=== PATIENT | female | born 1965 | race African-American/Black ===

== ENCOUNTER 2016-06-06 11:04 | Emergency (ER) | payer OTHER ==
[~2016-06-06] VITALS: Ht 160 cm; Wt 102.0 kg
[2016-06-06 11:06] VITALS: BP 187/83; PULSE 84; RESP 17; TEMP 97.8; O2SAT 98
--- NOTE | 2016-06-06 11:25 | PD ---
Physical Exam Time Seen by Provider: 11:21 Narrative 50yo F c/o rash to BUE, BLE, chest, and back since Monday. Denies fever, vomiting. Brought bugs with her. She is staying in a hotel. Patient stable. Patient seen in triage. Awaiting bed placement. Data Data Last Documented VS Vital Signs Date Time Temp Pulse Resp B/P Pulse Ox O2 Delivery O2 Flow Rate FiO2 06/06/16 11:06 97.8 84 17 187/83 98 MDM Supervised Visit with TRACY: Lalita Nichols Jun 06, 2016 11:25
--- NOTE | 2016-06-06 12:21 | PD ---
HPI . Possible bedbug bite since Monday Chief Complaint: Bite or Sting Time Seen by Provider: 12:21 Travel History International Travel<30 days: No Contact w/Intl Traveler<30days: No Traveled to known affect area: No History of Present Illness HPI 50-year-old female here with complaints of possible bedbug bites since Monday. Patient is visiting from out of town and staying at a hotel. She reports that ever since starting her stay at the hotel on Monday that she has been noticing areas on her skin popping up that appear to look like insect bites. She reports that they initially started off itchy, and then it dissipates. Today she is here and has brought a small bug with her for us to identify. She is still complaining of bites, but tells me that they are not significantly pruritic. She denies any fever or chills. She denies any new hygiene products. Her is staying with her in the hotel and has a few bites, but not as many as the patient. They will be leaving tomorrow. PFSH Past Medical History ?: Not Past Surgical History Hysterectomy: Yes Social History Tobacco Use: No Allergies-Medications (Allergen,Severity, Reaction): Coded Allergies: No Known Allergies (Unverified , 06/06/16) Reported Meds & Prescriptions Reported Meds & Active Scripts Active Hydrocortisone Topical 2.5% Cream 1 Applic TOPICAL BID 5 Days Review of Systems General / Constitutional: No: Fever Eyes: No: Visual changes HENT: No: Headaches Cardiovascular: No: Chest Pain or Discomfort Respiratory: No: Shortness of Breath Gastrointestinal: No: Abdominal Pain Genitourinary: No: Dysuria Musculoskeletal: No: Pain Skin: Positive Itching, Positive Other (insect bites/), No Rash Neurologic: No: Weakness Psychiatric: No: Depression Endocrine: No: Polydipsia Hematologic/Lymphatic: No: Easy Bruising Physical Exam Narrative GENERAL: AAO x 3, no acute distress, Well-nourished, well-developed patient. SKIN: Warm and dry. No visible rashes or bruising. There are skip-like lesions randomly distributed on the upper extremities, 2 on the chest done on the lower extremities. They appear to have a central bite leander, raised. No evidence of warmth or purulence. No blisters HEAD: Normocephalic and atraumatic. EYES: No scleral icterus. No injection or drainage. ENT: No nasal drainage noted. Mucous membranes pink. Airway patent. NECK: Supple, trachea midline. No JVD. CARDIOVASCULAR: Regular rate and rhythm without murmurs, gallops, or rubs. RESPIRATORY: Breath sounds equal bilaterally. No accessory muscle use. No rhonchi or rales. GASTROINTESTINAL: Visual inspection normal EXTREMITIES: No cyanosis or edema. BACK: Nontender without obvious deformity. No CVA tenderness. PSYCH: AAO x 3, normal affect. Data Data Last Documented VS Vital Signs Date Time Temp Pulse Resp B/P Pulse Ox O2 Delivery O2 Flow Rate FiO2 06/06/16 11:06 97.8 84 17 187/83 98 MDM Medical Decision Making Medical Screen Exam Complete: Yes Emergency Medical Condition: Yes Medical Record Reviewed: Yes Differential Diagnosis Insect bite, less likely contact dermatitis, less likely allergic reaction Narrative Course 50-year-old female here with complaints of possible bedbug bites since Monday. Patient is visiting from out of town and staying at a hotel. She reports that ever since starting her stay at the hotel on Monday that she has been noticing areas on her skin popping up that appear to look like insect bites. She reports that they initially started off itchy, and then it dissipates. Today she is here and has brought a small bug with her for us to identify. She is still complaining of bites, but tells me that they are not significantly pruritic. She denies any fever or chills. She denies any new hygiene products. Her is staying with her in the hotel and has a few bites, but not as many as the patient. They will be leaving tomorrow. Patient seen and examined. She appears to have possible bedbug bites. There is a possible bug she is brought in with her and is very hard to differentiate if it is actually a bug. It could be a small mite or bed bug in earlier life cycle. I have explained to the patient that I am not a bug expert and cannot 100% identify the insect. However, her bites are consistent with bed bug bites. None of these lesions are infected. I do not recommend any other treatment other than anti-itch cream topically. I recommend if she notices that any of these lesions are starting to change, follow up with her doctor or the nearest emergency department. Patient verbalized understanding of instructions, questions were answered, and thanked me for their care. I advised them if their condition worsens, please return to the nearest emergency room for further care. Diagnosis Primary Impression: Bed bug bite Qualified Code: W57.XXXA - Bed bug bite, initial encounter Patient Instructions: General Instructions Additional Instructions: Please return to emergency department if your symptoms return or worsen. Follow up with your primary care provider. Take medications as prescribed. Manager [employer] belongings as we discussed. Med/Other Pt SpecificInfo: Prescription(s) given Scripts Hydrocortisone Topical 2.5% Cream1 Applic TOPICAL BID 5 Days Ref 0 Prov:Ryan Bonilla MD 06/06/16 Disposition: 01 DISCHARGE HOME Condition: Stable Masha Chavez Jun 06, 2016 12:21
[2016-06-06] MEDS ORDERED: HYDR2.5C TOPICAL (12:27)
== END 2016-06-06 13:01 | disposition home or self-care (01) ==
LOC: NEPK 11:04
DX: T14.8 Other injury of unspecified body region (principal); W57.XXXA Bitten or stung by nonvenomous insect and other nonvenomous arthropods, initial encounter; Y93.89 Activity, other specified; Y92.59 Other trade areas as the place of occurrence of the external cause; Y99.8 Other external cause status
CPT/HCPCS: 99281